=== PATIENT | male | born 1960 | race Hispanic/Latino ===

== ENCOUNTER → 2018-12-17 | Day surgery (SDC) | payer BC ==
[~2018-12-17] MED LIST: FENTANYL CITRATE/PF 100MCG/2 ML INJ ONE; INSULIN REGULAR, HUMAN 100 UNIT/1 ML 3ML VIAL ONE; LEVEMIR SC; METFORMIN HCL500 MG PO; MIDAZOLAM HCL 2 MG/2 ML VIAL ONE; OMEPRAZOLE40 MG PO; PROPOFOL IV EMULSION 10 MG/ML 50 ML VIAL ONE
--- OUTSIDE RECORDS SUMMARY | 2018-12-17 11:48 | XMS REPORT ---
Author [facility] Address Unknown Phone Unavailable Care Team Providers Care Mold Operator Name Role Phone Unavailable Unavailable Payers Payer Name Policy Type Policy Number Effective Date Expiration Date Problems This patient has no known problems. Allergies, Adverse Reactions, Alerts Allergy Name Allergy Type Status Severity Reaction(s) Onset Date Inactive Date Treating Clinician Comments No Known Allergies DA Active U 2017-05-30 00:00:00 Medications This patient has no known medications. Results Test Description Test Time Test Comments Text Results Atomic Results Result Comments GLUBED 2018-12-04 17:28:00 GLUBED (test code=GLUBED) 263 mg/dL 74-106 Performed by certified transfer table operator at [facility] - CT ABD PELVIS [id number] 16:12:00 Name: MIRIAM ARORA [facility] : 1960 Age/S: 58 / M [address] [facility] Unit #: [id number] Loc: [place]USH[place] [address] Phys: Alcon Barrios DO Acct: [id number] Dis Date: Status: REG ER PHONE #: [phone] Exam Date: 12/04/2018 1605 FAX #: [phone] Reason: upper abd pain EXAMS: CPT CODE: [id number] CT ABD PELVIS W/CONT [id number] REASON FOR EXAM: upper abd pain EXAM ORDER DATE: 12/04/2018 2:22 PM Ordering Vladimir: Alcon Barrios DO PROCEDURE: - CT ABD PELVIS W/CONT COMPARISON: FINDINGS: CT images of the abdomen and pelvis were obtained with IV and without oral contrast at 5mm. Dose modulation, iterative reconstruction, and/or weight based adjustment of the MA/KV was utilized to reduce the radiation dose to as low as reasonably achievable. Intravenous contrast: 100cc of Omnipaque 370. The liver, spleen, pancreas are grossly within normal limits. The patient is status post cholecystectomy. The kidneys are within normal limits. The urinary bladder is unremarkable. The colon, small bowel, and stomach are within normal limits without evidence of obstruction. The appendix is unremarkable. No evidence of free air or free fluid. IMPRESSION: No acute findings in the abdomen at 1612 Reported and signed by: Ernesto Wells M.D. CC: Alcon Barrios DO Technologist:Blessing Natarajan RT(R); SHERIE Bhagat CTDI: DLP: Trnscb Date/Time: 12/04/2018 (161) [id number] Orig Print D/T: S: 12/04/2018 (3535) CTDI: DLP: PAGE 1 Signed Report HEPATIC FUNCTION [id number] 15:50:00* Test Item Value Reference Range Comments TOTAL PROTEIN (test code=PROT) 7.9 gram/dL 6.4-8.2 ALBUMIN (test code=ALB) 4.6 g/dL 3.4-5.0 GLOBULIN (test code=GLOB) 3.3 gram/dL 2.7-4.2 ALBUMIN/GLOBULIN RATIO (test code=A/G) 1.4 0.75-1.50 BILIRUBIN TOTAL (test code=BILT) 0.50 mg/dL 0.0-1.0 BILIRUBIN DIRECT (test code=BILD) 0.15 mg/dL 0.0-0.20 SGOT/AST (test code=AST) 8 IUnit/L 15-37 SGPT/ALT (test code=ALT) 30 IUnit/L 12-78 ALKALINE PHOSPHATASE TOTAL (test code=ALKP) 153 IUnit/L 45-117 Note change in reference range due to change in reagent. [id number] 15:50:00* Test Item Value Reference Range Comments LIPASE (test code=LIP) 162 U/L 73.0-393.0 [id number] 15:50:00* Test Item Value Reference Range Comments TROPONIN-I (test code=TROPI) <0.015 ng/mL 0-0.045 HEPATIC FUNCTION [id number] 15:43:00* Test Item Value Reference Range Comments TOTAL PROTEIN (test code=PROT) gram/dL 6.4-8.2 ALBUMIN (test code=ALB) 4.6 g/dL 3.4-5.0 GLOBULIN (test code=GLOB) gram/dL 2.7-4.2 ALBUMIN/GLOBULIN RATIO (test code=A/G) 0.75-1.50 BILIRUBIN TOTAL (test code=BILT) mg/dL 0.0-1.0 BILIRUBIN DIRECT (test code=BILD) mg/dL 0.0-0.20 SGOT/AST (test code=AST) IUnit/L 15-37 SGPT/ALT (test code=ALT) IUnit/L 12-78 ALKALINE PHOSPHATASE TOTAL (test code=ALKP) IUnit/L 45-117 [id number] 15:43:00* Test Item Value Reference Range Comments LIPASE (test code=LIP) U/L 73.0-393.0 [id number] 15:43:00* Test Item Value Reference Range Comments TROPONIN-I (test code=TROPI) ng/mL 0-0.045 BASIC METABOLIC [id number] 15:42:00* Test Item Value Reference Range Comments SODIUM (test code=NA) 132 mmol/L 136-145 POTASSIUM (test code=K) 4.3 mmol/L 3.5-5.1 CHLORIDE (test code=CL) 95.0 mmol/L 98-107 CARBON DIOXIDE (test code=CO2) 28.0 mmol/L 21-32 ANION GAP (test code=GAP) 13.3 10-20 GLUCOSE (test code=GLU) 407 mg/dL 74-106 BLOOD UREA NITROGEN (test code=BUN) 18 mg/dL 7-18 GLOMERULAR FILTRATION RATE (test code=GFR) > 60 mL/min >=60 Estimated GFR by using Modified MDRD formula.Chronic kidney disease is defined as either kidney damageor GFR <60 mL/min/1.73 m2 for >3 months. CREATININE (test code=CREAT) 0.90 mg/dL 0.7-1.3 BUN/CREATININE RATIO (test code=BUN/CREA) 20.0 10-20 CALCIUM (test code=CA) 10.2 mg/dL 8.5-10.1 URINALYSIS [id number] 15:38:00* Test Item Value Reference Range Comments UA COLOR (test code=COLU) COLORLESS YELLOW UA APPEARANCE (test code=APPU) CLEAR CLEAR UA GLUCOSE DIPSTICK (test code=DGLUU) >1000 (4+) mg/dL NEGATIVE UA BILIRUBIN DIPSTICK (test code=BILU) NEGATIVE mg/dL NEGATIVE UA KETONE DIPSTICK (test code=KETU) 10 (1+) mg/dL NEGATIVE UA SPECIFIC GRAVITY (test code=SGU) 1.040 1.001-1.035 UA BLOOD DIPSTICK (test code=MERARI) Negative mg/dL NEGATIVE UA PH DIPSTICK (test code=GORDO) 6.5 5.0-8.0 UA PROTEIN DIPSTICK (test code=PROU) NEGATIVE mg/dL NEGATIVE UA UROBILINIOGEN DIPSTICK (test code=URO) Normal mg/dL NEGATIVE UA NITRITE DIPSTICK (test code=KAREN) NEGATIVE NEGATIVE UA LEUKOCYTE ESTERASE W REFLEX (test code=LEUUR) NEGATIVE Omer/uL NEGATIVE UA WBC (test code=WBCU) 0-5 per HPF 0-5 UA RBC (test code=RBCU) 0-2 #/HPF 0-5 UA EPITHELIAL CELLS (test code=EPIU) None seen per HPF FEW UA BACTERIA (test code=BACU) FEW #/HPF NONE UA MUCUS (test code=MUCU) FEW #/LPF FEW Urine Source? Clean CatchBASIC METABOLIC [id number] 15:32:00* Test Item Value Reference Range Comments SODIUM (test code=NA) 132 mmol/L 136-145 POTASSIUM (test code=K) 4.3 mmol/L 3.5-5.1 CHLORIDE (test code=CL) 95.0 mmol/L 98-107 CARBON DIOXIDE (test code=CO2) mmol/L 21-32 ANION GAP (test code=GAP) 10-20 GLUCOSE (test code=GLU) mg/dL 74-106 BLOOD UREA NITROGEN (test code=BUN) mg/dL 7-18 GLOMERULAR FILTRATION RATE (test code=GFR) mL/min >=60 CREATININE (test code=CREAT) mg/dL 0.7-1.3 BUN/CREATININE RATIO (test code=BUN/CREA) 10-20 CALCIUM (test code=CA) mg/dL 8.5-10.1 CBC W/O [id number] 15:14:00* Test Item Value Reference Range Comments WHITE BLOOD CELL (test code=WBC) 12.1 K/mm3 4.5-12.5 RED BLOOD CELL (test code=RBC) 5.22 mill/mm3 4.0-5.8 HEMOGLOBIN (test code=HGB) 15.5 gram/dL 13.0-17.5 HEMATOCRIT (test code=HCT) 45.2 % 42.0-52.0 MEAN CELL VOLUME (test code=MCV) 86.6 fL 80-98 MEAN CELL HGB (test code=MCH) 29.7 picogram 27.0-33.0 MEAN CELL HGB CONCETRATION (test code=MCHC) 34.3 gram/dL 33.0-36.0 RED CELL DISTRIBUTION WIDTH (test code=RDW) 12.1 % 11.6-16.2 PLATELET COUNT (test code=PLT) 279 K/mm3 150-450 MEAN PLATELET VOLUME (test code=MPV) 10.2 fL 6.7-11.0 CBC W/O [id number] 15:12:00* Test Item Value Reference Range Comments WHITE BLOOD CELL (test code=WBC) K/mm3 4.5-12.5 RED BLOOD CELL (test code=RBC) mill/mm3 4.0-5.8 HEMOGLOBIN (test code=HGB) 15.5 gram/dL 13.0-17.5 HEMATOCRIT (test code=HCT) 45.2 % 42.0-52.0 MEAN CELL VOLUME (test code=MCV) fL 80-98 MEAN CELL HGB (test code=MCH) picogram 27.0-33.0 MEAN CELL HGB CONCETRATION (test code=MCHC) gram/dL 33.0-36.0 RED CELL DISTRIBUTION WIDTH (test code=RDW) % 11.6-16.2 PLATELET COUNT (test code=PLT) K/mm3 150-450 MEAN PLATELET VOLUME (test code=MPV) fL 6.7-11.0 [id number] 13:43:00* Test Item Value Reference Range Comments GLUBED (test code=GLUBED) 424 mg/dL 74-106 Performed by certified transfer table operator at [facility]
[2018-12-17 14:10] VITALS: BP 105/78
--- NOTE | 2018-12-17 21:11 | Operative Report ---
DATE OF PROCEDURE: 12/17/2018 SURGEON: Joseph Morocho MD PROCEDURES PERFORMED: Esophagogastroduodenoscopy and colonoscopy. PREOPERATIVE DIAGNOSES: Abdominal pain, weight loss, nausea, and vomiting. POSTOPERATIVE DIAGNOSES: Hiatal hernia with reflux esophagitis, gastritis, and gastroparesis. Colon was totally within normal limits. PREOPERATIVE MEDICATIONS: Consisted of conscious sedation using MAC anesthesia. PROCEDURE IN DETAIL: PROCEDURE #1: Esophagogastroduodenoscopy: Using an Olympus [employer] video gastroscope, it was inserted into the patient's oropharynx, advanced to the hypopharynx, and down to the esophagus. The mucosa present throughout the esophagus was normal. There was evidence of mild reflux esophagitis in the very distal esophagus above a small sliding type hiatal hernia. The stomach was entered and insufflated with air. The mucosa present in the cardia, fundus, body, and antrum was viewed with evidence of gastritis, but no ulcerations or erosions were seen. The motility was grossly abnormal, suggestion maybe gastroparesis. Biopsies were obtained in the antrum and fundus looking for H. pylori infection. The pylorus was just visualized and entered. The duodenal bulb and postbulbar duodenum were found to be within normal limits. The endoscope was then withdrawn back up into the stomach, retroflexed again viewing the cardia, fundus and below. Again, hiatal hernia was seen. The scope was placed back into the body of the stomach and then slowly withdrawn back up into the esophagus, hypopharynx, oropharynx, and out of the patient's mouth and the procedure was ended. PROCEDURE #2: Colonoscopy: After normal digital rectal examination, an Olympus PABLO video colonoscope was inserted into the patient's rectum and advanced without difficulty to the level of cecum. The ileocecal valve was viewed and photographed. The colonoscope was withdrawn from the area of the cecum back down to the rectum. No polypoid lesions, tumors, masses, or inflammatory changes were encountered. We withdrew the colonoscope from the patient's rectum and procedure was ended. In completion, there were findings of hiatal hernia, reflux esophagitis, gastritis, gastroparesis, and normal colon examination. Joseph Morocho MD SAF/MODL /[id number]
== END | disposition home or self-care (01) ==
LOC: OR 11:47
PROVIDERS: ATTEND Internal Medicine Gastroenterology
DX: K29.00 Acute gastritis without bleeding (principal); K31.84 Gastroparesis; K21.0 Gastro-esophageal reflux disease with esophagitis; K44.9 Diaphragmatic hernia without obstruction or gangrene; E11.9 Type 2 diabetes mellitus without complications; Z01.810 Encounter for preprocedural cardiovascular examination; Z79.4 Long term (current) use of insulin; Z80.0 Family history of malignant neoplasm of digestive organs
CPT/HCPCS: 36415; 43239; 45378; 82948; 93005; J2250; J2704

== ENCOUNTER 2020-06-30 18:32 | Emergency (ER) | payer BC ==
[~2020-06-30 18:32] MED LIST changes: -FENTANYL CITRATE/PF 100MCG/2 ML INJ ONE; -INSULIN REGULAR, HUMAN 100 UNIT/1 ML 3ML VIAL ONE; -MIDAZOLAM HCL 2 MG/2 ML VIAL ONE; -PROPOFOL IV EMULSION 10 MG/ML 50 ML VIAL ONE
[2020-06-30] MEDS ORDERED: ACETAMINOPHEN 325 MG TAB PO ONE (19:00)
--- NOTE | 2020-06-30 20:05 | Diagnostic Imaging Report ---
EXAMINATION: CHEST SINGLE (PORTABLE) INDICATION: ^Y ^COVID + ^[id number] ^1929 COMPARISON: None FINDINGS: AP view TUBES and LINES: None. LUNGS: Lungs are well inflated. Bilateral mid to lower lung field airspace opacities. PLEURA: No pleural effusion or pneumothorax. HEART AND MEDIASTINUM: The cardiomediastinal silhouette is unremarkable. BONES AND SOFT TISSUES: No acute osseous lesion. Soft tissues are unremarkable. UPPER ABDOMEN: No free air under the diaphragm. IMPRESSION: Bilateral mid to lower lung field airspace opacities, representing multifocal pneumonia. Signed by: Dr. Kurt Christina MD on 06/30/2020 8:02 PM
--- OUTSIDE RECORDS SUMMARY | 2020-06-30 20:12 | XMS REPORT | Continuity of Care Document ---
Author Author [facility] t Organization [facility] Address [address] [place] [address] Phone Unavailable Care Team Providers Care Director Enterprise Sales Name Role Phone Tracey Mayer Attcindikalia Unavailable Payers Payer Name Policy Type Policy Number Effective Date Expiration Date S ource Problems This patient has no known problems. Allergies, Adverse Reactions, Alerts Allergy Name Allergy Type Status Severity Reaction(s) Onset Date Inacti ve Date Treating Clinician Comments Source No Known Allergies DA Active U 2017-05-30 00:00:00 [facility] Medications This patient has no known medications. Procedures This patient has no known procedures. Results Test Description Test Time Test Comments Results Result Comments Source CHEST SINGLE (PORTABLE) 2020-06-30 20:01:00 [facility] 1960 Sex: M [facility] [address] [place] [address] Patient Name: MIRIAM ARORA MR #: [id number] : 1960 Age/Sex: 59/M Req #: [id number] Adm Physician: Ordered by: OCTAVIA HERRMANN MD Report #: [id number] Location: ER Room/Bed: Procedure: [id number] DX/CHEST SINGLE (PORTABLE) Exam Date: 06/30/20 Exam Time: 1929 REPORT STATUS: Signed EXAMINATION: CHEST SINGLE (PORTABLE) INDICATION: Y COVID + [id number] COMPARISON: None FINDINGS: AP view TUBES and LINES: None. LUNGS: Lungs are well inflated. Bilateral mid to lower lung field airspace opacities. PLEURA: No pleural effusion or pneumothorax. HEART AND MEDIASTINUM: The cardiomediastinal silhouette is unremarkable. BONES AND SOFT TISSUES: No acute osseous lesion. Soft tissues are unremarkable. UPPER ABDOMEN: No free air under the diaphragm. IMPRESSION: Bilateral mid to lower lung field airspace opacities, representing multifocal pneumonia. Signed by: Dr. Kurt Magaña MD on 06/30/2020 8:02 PM Dictated By: KURT MAGAÑA MD 01 Transcribed By: BLAIR on 06/30/202001 COPY TO: OCTAVIA HERRMANN MD GLUBED 2018-12-04 17:28:00 Test Item GLUBED (test code = GLUBED) 263 mg/dL 74-106 H Performed by certified silverware buffing machine operator at [facility] - CT ABD PELVIS [id number] 16:12:00 Name: MIRIAM ARORA [facility] : 1960 Age/S: 58 / M [address] Unit #: [id number] Loc: SUSH[place] [address] Phys: Alcon Barrios DO Acct: [id number] Dis Date: Status: REG ER PHONE #: [phone] Exam Date: 12/04/2018 1605 FAX #: [phone] Reason: upper abd pain EXAMS: CPT CODE: [id number] CT ABD PELVIS W/CONT [id number] REASON FOR EXAM: upper abd pain EXAM [...] Wells M.D. CC: Alcon Barrios DO Technologist:Blessing JACK(R); SHERIE Bhagat CTDI: DLP: Trnscb Date/Time: 12/04/2018 (1612) Matilda Orig Print D/T: S: 12/04/2018 (1615) CTDI: DLP: PAGE 1 Signed Report HEPATIC FUNCTION [id number] 15:50:00* Test Item Value Reference Range Interpretation Comments TOTAL PROTEIN (test code = PROT) 7.9 gram/dL 6.4-8.2 N ALBUMIN (test code = ALB) 4.6 g/dL 3.4-5.0 N GLOBULIN (test code = GLOB) 3.3 gram/dL 2.7-4.2 N ALBUMIN/GLOBULIN RATIO (test code = A/G) 1.4 0.75-1.50 N BILIRUBIN TOTAL (test code = BILT) 0.50 mg/dL 0.0-1.0 N BILIRUBIN DIRECT (test code = BILD) 0.15 mg/dL 0.0-0.20 N SGOT/AST (test code = AST) 8 IUnit/L 15-37 L SGPT/ALT (test code = ALT) 30 IUnit/L 12-78 N ALKALINE PHOSPHATASE TOTAL (test code = ALKP) 153 IUnit/L 45-117 H Note change in reference range due to change in reagent. [id number] 15:50:00* Test Item Value Reference Range Interpretation Comments LIPASE (test code = LIP) 162 U/L 73.0-393.0 N [id number] 15:50:00* Test Item Value Reference Range Interpretation Comments TROPONIN-I (test code = TROPI) <0.015 ng/mL 0-0.045 N HEPATIC FUNCTION [id number] 15:43:00* Test Item Value Reference Range Interpretation Comments TOTAL PROTEIN (test code = PROT) gram/dL 6.4-8.2 ALBUMIN (test code = ALB) 4.6 g/dL 3.4-5.0 N GLOBULIN (test code = GLOB) gram/dL 2.7-4.2 ALBUMIN/GLOBULIN RATIO (test code = A/G) 0.75-1.50 BILIRUBIN TOTAL (test code = BILT) mg/dL 0.0-1.0 BILIRUBIN DIRECT (test code = BILD) mg/dL 0.0-0.20 SGOT/AST (test code = AST) IUnit/L 15-37 SGPT/ALT (test code = ALT) IUnit/L 12-78 ALKALINE PHOSPHATASE TOTAL (test code = ALKP) IUnit/L 45-117 [id number] 15:43:00* Test Item Value Reference Range Interpretation Comments LIPASE (test code = LIP) U/L 73.0-393.0 [id number] 15:43:00* Test Item Value Reference Range Interpretation Comments TROPONIN-I (test code = TROPI) ng/mL 0-0.045 BASIC METABOLIC [id number] 15:42:00* Test Item Value Reference Range Interpretation Comments SODIUM (test code = NA) 132 mmol/L 136-145 L POTASSIUM (test code = K) 4.3 mmol/L 3.5-5.1 N CHLORIDE (test code = CL) 95.0 mmol/L 98-107 L CARBON DIOXIDE (test code = CO2) 28.0 mmol/L 21-32 N ANION GAP (test code = GAP) 13.3 10-20 N GLUCOSE (test code = GLU) 407 mg/dL 74-106 H BLOOD UREA NITROGEN (test code = BUN) 18 mg/dL 7-18 N GLOMERULAR FILTRATION RATE (test code = GFR) > 60 mL/min >=60 Estimated GFR by using Modified MDRD formula.Chronic kidney disease is defined as either kidney damageor GFR <60 mL/min/1.73 m2 for >3 months. CREATININE (test code = CREAT) 0.90 mg/dL 0.7-1.3 N BUN/CREATININE RATIO (test code = BUN/CREA) 20.0 10-20 N CALCIUM (test code = CA) 10.2 mg/dL 8.5-10.1 H URINALYSIS [id number] 15:38:00* Test Item Value Reference Range Interpretation Comments UA COLOR (test code = COLU) COLORLESS YELLOW A UA APPEARANCE (test code = APPU) CLEAR CLEAR UA GLUCOSE DIPSTICK (test code = DGLUU) >1000 (4+) mg/dL NEGATIVE UA BILIRUBIN DIPSTICK (test code = BILU) NEGATIVE mg/dL NEGATIVE UA KETONE DIPSTICK (test code = KETU) 10 (1+) mg/dL NEGATIVE A UA SPECIFIC GRAVITY (test code = SGU) 1.040 1.001-1.035 UA BLOOD DIPSTICK (test code = MERARI) Negative mg/dL NEGATIVE UA PH DIPSTICK (test code = GORDO) 6.5 5.0-8.0 UA PROTEIN DIPSTICK (test code = PROU) NEGATIVE mg/dL NEGATIVE UA UROBILINIOGEN DIPSTICK (test code = URO) Normal mg/dL NEGATIVE UA NITRITE DIPSTICK (test code = KAREN) NEGATIVE NEGATIVE UA LEUKOCYTE ESTERASE W REFLEX (test code = LEUUR) NEGATIVE Omer/uL NEGATIVE UA WBC (test code = WBCU) 0-5 per HPF 0-5 UA RBC (test code = RBCU) 0-2 #/HPF 0-5 UA EPITHELIAL CELLS (test code = EPIU) None seen per HPF FEW UA BACTERIA (test code = BACU) FEW #/HPF NONE A UA MUCUS (test code = MUCU) FEW #/LPF FEW Urine Source? Clean CatchBASIC METABOLIC [id number] 15:32:00* Test Item Value Reference Range Interpretation Comments SODIUM (test code = NA) 132 mmol/L 136-145 L POTASSIUM (test code = K) 4.3 mmol/L 3.5-5.1 N CHLORIDE (test code = CL) 95.0 mmol/L 98-107 L CARBON DIOXIDE (test code = CO2) mmol/L 21-32 ANION GAP (test code = GAP) 10-20 GLUCOSE (test code = GLU) mg/dL 74-106 BLOOD UREA NITROGEN (test code = BUN) mg/dL 7-18 GLOMERULAR FILTRATION RATE (test code = GFR) mL/min >=60 CREATININE (test code = CREAT) mg/dL 0.7-1.3 BUN/CREATININE RATIO (test code = BUN/CREA) 10-20 CALCIUM (test code = CA) mg/dL 8.5-10.1 CBC W/O [id number] 15:14:00* Test Item Value Reference Range Interpretation Comments WHITE BLOOD CELL (test code = WBC) 12.1 K/mm3 4.5-12.5 N RED BLOOD CELL (test code = RBC) 5.22 mill/mm3 4.0-5.8 N HEMOGLOBIN (test code = HGB) 15.5 gram/dL 13.0-17.5 N HEMATOCRIT (test code = HCT) 45.2 % 42.0-52.0 N MEAN CELL VOLUME (test code = MCV) 86.6 fL 80-98 N MEAN CELL HGB (test code = MCH) 29.7 picogram 27.0-33.0 N MEAN CELL HGB CONCETRATION (test code = MCHC) 34.3 gram/dL 33.0-36. 0 N RED CELL DISTRIBUTION WIDTH (test code = RDW) 12.1 % 11.6-16. 2 N PLATELET COUNT (test code = PLT) 279 K/mm3 150-450 N MEAN PLATELET VOLUME (test code = MPV) 10.2 fL 6.7-11.0 N CBC W/O [id number] 15:12:00* Test Item Value Reference Range Interpretation Comments WHITE BLOOD CELL (test code = WBC) K/mm3 4.5-12.5 RED BLOOD CELL (test code = RBC) mill/mm3 4.0-5.8 HEMOGLOBIN (test code = HGB) 15.5 gram/dL 13.0-17.5 N HEMATOCRIT (test code = HCT) 45.2 % 42.0-52.0 N MEAN CELL VOLUME (test code = MCV) fL 80-98 MEAN CELL HGB (test code = MCH) picogram 27.0-33.0 MEAN CELL HGB CONCETRATION (test code = MCHC) gram/dL 33.0-36. 0 RED CELL DISTRIBUTION WIDTH (test code = RDW) % 11.6-16. 2 PLATELET COUNT (test code = PLT) K/mm3 150-450 MEAN PLATELET VOLUME (test code = MPV) fL 6.7-11.0 [id number] 13:43:00* Test Item Value Reference Range Interpretation Comments GLUBED (test code = GLUBED) 424 mg/dL 74-106 H Performed by certified silverware buffing machine operator at [facility]
--- NOTE | 2020-06-30 20:32 | Emergency Department Note ---
History of Present Illnes History of Present Illness Chief Complaint: COVID PUI History of Present Illness This is a 59 year old male 59 Y/O MALE PT AAOX3 PRESENTS TO THE ER COVID + X1 WEEK AGO; PT REPORTS COUGH AND LOSS OF TASTE; RESP ARE EVEN, UNLABORED, OXYGEN SATURATION 99% ON ROOM AIR . Historian: Patient Arrival Mode: Car Onset (how long ago): day(s) (7) Location: CHEST Quality: COUGH Radiation: Reports non-radiation Severity: moderate Onset quality: gradual Duration (how long): day(s) (7) Timing of current episode: constant Progression: worsening Chronicity: new Context: Reports recent illness (POSITIVE FOR COVID 19) Relieving factors: none Exacerbating factors: movement Associated symptoms: Reports cough, Reports shortness of breath Treatments prior to arrival: none Past Medical/Family History Physician Review I have reviewed the patient's past medical and family history. Any updates have been documented here. Past Medical History Recent Fever: Yes Clinical Suspicion of Infectio: Yes New/Unexplained Change in Ment: No Social History Smoking Cessation: Unknown if ever smoked Alcohol Use: None Any Illegal Drug Use: No Other Any Pre-Existing Lines (PICC,: No Review of Systems Review of Systems Constitutional: Reports no symptoms EENTM: Reports no symptoms Cardiovascular: Reports no symptoms Respiratory: Reports as per HPI Gastrointestinal: Reports no symptoms Genitourinary: Reports no symptoms Musculoskeletal: Reports no symptoms Integumentary: Reports no symptoms Neurological: Reports no symptoms Psychological: Reports no symptoms Endocrine: Reports no symptoms Hematological/Lymphatic: Reports no symptoms Physical Exam Related Data Allergies: Coded Allergies: No Known Allergies (Unverified , 12/16/18) Triage Vital Signs Vital Signs Date Time Temp Pulse Resp B/P (MAP) Pulse Ox O2 Delivery O2 Flow Rate FiO2 06/30/20 18:40 100.1 91 20 131/80 99 Room Air Vital signs reviewed: Yes Physical Exam CONSTITUTIONAL Constitutional: Present well-developed, Present well-nourished; Absent distressed HENT HENT: Present normocephalic, Present atraumatic, Present oropharynx clear/moist, Present nose normal HENT L/R: Present left ext ear normal, Present right ext ear normal EYES Eyes: Reports PERRL, Reports conjunctivae normal NECK Neck: Present ROM normal PULMONARY Pulmonary: Present effort normal, Present rhonchi (AT BASES BILATERAL) CARDIOVASCULAR Cardiovascular: Present regular rhythm, Present heart sounds normal, Present capillary refill normal, Present normal rate GASTROINTESTINAL Abdominal: Present soft, Present nontender, Present bowel sounds normal GENITOURINARY Genitourinary: Present exam deferred SKIN Skin: Present warm, Present dry MUSCULOSKELETAL Musculoskeletal: Present ROM normal NEUROLOGICAL Neurological: Present alert, Present oriented x 3, Present no gross motor or sensory deficits PSYCHOLOGICAL Psychological: Present mood/affect normal, Present judgement normal Results Imaging Imaging results reviewed: Yes Impressions Procedure: [id number] DX/CHEST SINGLE (PORTABLE) Exam Date: 06/30/20 Exam Time: 1929 REPORT STATUS: Signed EXAMINATION: CHEST SINGLE (PORTABLE) INDICATION: ^Y ^COVID + ^20200630 ^1929 COMPARISON: None FINDINGS: AP view TUBES and LINES: None. LUNGS: Lungs are well inflated. Bilateral mid to lower lung field airspace opacities. PLEURA: No pleural effusion or pneumothorax. HEART AND MEDIASTINUM: The cardiomediastinal silhouette is unremarkable. BONES AND SOFT TISSUES: No acute osseous lesion. Soft tissues are unremarkable. UPPER ABDOMEN: No free air under the diaphragm. IMPRESSION: Bilateral mid to lower lung field airspace opacities, representing multifocal pneumonia. Signed by: Dr. uKrt Christina MD on 06/30/2020 8:02 PM Dictated By: KURT CHRISTINA MD 01 Transcribed By: BLAIR on 06/30/202001 COPY TO: OCTAVIA HERRMANN MD~ Assessment & Plan Medical Decision Making MDM PT WITH COVID 19 WITH COUGH AND SOB CXR ORDERED TO EVAL FOR VIRAL PNEUMONIA I SPOKE WITH DR SPENCE D/C WITH ZPAK, ZINC AND VITAMIN C Assessment & Plan Final Impression: (1) Pneumonia due to COVID-19 virus Depart Disposition: HOME, SELF-CARE Last Vital Signs Date Time Temp Pulse Resp B/P (MAP) Pulse Ox O2 Delivery O2 Flow Rate FiO2 06/30/20 18:40 100.1 91 20 131/80 99 Room Air Home Meds Reported Medications Omeprazole (OMEPRAZOLE) 40 Mg Capsule., 1 CAP PO DAILY 12/17/18 [Levemir] No Conflict Check, 10 U SC PRN 12/16/18 Metformin Hcl (METFORMIN HCL) 500 Mg Tablet, 1000 MG PO DAILY, #60 TAB 12/16/18 Medications in the ED Acetaminophen 650 mg ONCE ONCE PO ; Start 06/30/20 at 19:00; Stop 06/30/20 at 19:01; Status DC OCTAVIA HERRMANN MD Jun 30, 2020 20:32
== END 2020-06-30 20:51 | disposition home or self-care (01) ==
LOC: ER 18:38
DX: U07.1 COVID-19 (principal); J12.89 Other viral pneumonia
CPT/HCPCS: 71045; 99283

== ENCOUNTER 2020-07-05 10:20 | Emergency (ER) | payer SELFPAY ==
[~2020-07-05] VITALS: Ht 157.5 cm; Wt 59.0 kg
--- OUTSIDE RECORDS SUMMARY | 2020-07-05 10:27 | XMS REPORT | Continuity of Care Document ---
Author Author [facility] Organization [facility] t Address [address] [place] [address] Phone Unavailable Care Team Providers Care Building Services Supervisor Name Role Phone DO JOLEEN DENNIS PCP Tracey Mayer Unavailable Payers Payer Name Policy Type Policy Number Effective Date Expiration Date [employer] [id number] 2019 00:00:00 [facility] Problems Condition Name Condition Details Condition Category Status Onset Date Resolution Date Last Treatment Date Treating Clinician Comments Source Pneumonia due to severe acute respiratory syndrome coronavir us 2 (SARS-CoV-2) Problem Active [facility] Allergies, Adverse Reactions, Alerts Allergy Name Allergy Type Status Severity Reaction(s) Onset Date Inacti ve Date Treating Clinician Comments Source No Known Allergies DA Active U 2017-05-30 00:00:00 [facility] Social History Social Habit Start Date Stop Date Quantity Comments Source Sex Assigned At 1960 00:00:00 1960 00:00:00 Male [facility] Medications Ordered Medication Name Filled Medication Name Start Date Stop Da te Current Medication? Ordering Clinician Indication Dosage Frequency Signature (SIG) Comments Components Source Levemir Levemir Yes 10 As Needed [facility] Metformin Hcl Metformin Hcl Yes 1000 Daily [facility] Omeprazole Omeprazole Yes 1 Daily [facility] I [facility] Vital Signs Vital Name Observation Time Observation Value Comments Source Oxygen saturation by Pulse oximetry 2020-06-30 20:38:00 100 /min [facility] Procedures This patient has no known procedures. Plan of Care Planned Activity Planned Date Details Comments Source Instructions COVID-19: 10/18/2019 [facility] Encounters Start Date/Time End Date/Time Encounter Type Admission Type [facility] Facility Care Department Encounter ID Source 2020-06-30 18:38:00 2020-06-30 20:51:00 Departed Emergency Room Kasi Mayer [facility] [id number] I [facility] Results Test Description Test Time Test Comments Results Result Comments Source CHEST SINGLE (PORTABLE) 2020-06-30 20:01:00 [facility] 1960 Sex: M [place] [address] Patient Name: MIRIAM ARORA MR #: [id number] : 1960 Age/Sex: 59/M Req #: [id number] Adm Physician: Ordered by: OCTAVIA HERRMANN MD Report #: [id number] Location: ER Room/Bed: Procedure: [id number] DX/CHEST SINGLE (PORTABLE) Exam Date: 06/30/20 Exam Time: 1929 REPORT STATUS: Signed EXAMINATION: CHEST SINGLE (PORTABLE) INDICATION: Y COVID + [id number] COMPARISON: None FINDINGS: AP view TUBES [...] representing multifocal pneumonia. Signed by: Dr. Kurt Christina MD on 06/30/2020 8:02 PM Dictated By: KURT CHRISTINA MD 01 Transcribed By: BLAIR on 06/30/202001 COPY TO: OCTAVIA HERRMANN MD GLUBED 2018-12-04 17:28:00 Test Item GLUBED (test code = GLUBED) 263 mg/dL 74-106 H Performed by certified cloth mercerizer operator at [facility] - CT ABD PELVIS [id number] 16:12:00 Name: MIRIAM ARORA [facility] : 1960 Age/S: 58 / M [address] [facility] Unit #: [id number] Loc: [place] [address] Phys: Alcon Barrios DO Acct: [id number] Dis Date: Status: REG ER PHONE #: [phone] Exam Date: 12/04/2018 1605 FAX #: [phone] Reason: upper abd pain EXAMS: CPT CODE: [id number] CT ABD PELVIS W/CONT 16371 REASON FOR EXAM: upper abd pain EXAM ORDER DATE: 12/04/2018 2:22 PM Ordering M.DAkash: Alcon Barrios DO PROCEDURE: - CT ABD [...] Bhagat CTDI: DLP: Trnscb Date/Time: 12/04/2018 (161) AlejandraVTL Orig Print D/T: S: 12/04/2018 (7089) CTDI: DLP: PAGE 1 Signed Report HEPATIC FUNCTION [id number] 15:50:00* Test Item Value Reference Range Interpretation [...] reference range due to change in reagent. [id number] 15:50:00* Test Item Value Reference Range Interpretation Comments LIPASE (test code = LIP) 162 U/L 73.0-393.0 N [id number] 15:50:00* Test Item Value Reference Range Interpretation Comments TROPONIN-I (test code = TROPI) <0.015 ng/mL 0-0.045 N HEPATIC FUNCTION [id number] 15:43:00* Test Item Value Reference Range Interpretation [...] TOTAL (test code = ALKP) IUnit/L 45-117 [id number] 15:43:00* Test Item Value Reference Range Interpretation Comments LIPASE (test code = LIP) U/L 73.0-393.0 [id number] 15:43:00* Test Item Value Reference Range Interpretation Comments TROPONIN-I (test code = TROPI) ng/mL 0-0.045 BASIC METABOLIC [id number] 15:42:00* Test Item Value Reference Range Interpretation [...] = CA) 10.2 mg/dL 8.5-10.1 H URINALYSIS [id number] 15:38:00* Test Item Value Reference Range Interpretation [...] #/LPF FEW Urine Source? Clean CatchBASIC METABOLIC [id number] 15:32:00* Test Item Value Reference Range Interpretation [...] code = CA) mg/dL 8.5-10.1 CBC W/O [id number] 15:14:00* Test Item Value Reference Range Interpretation [...] MPV) 10.2 fL 6.7-11.0 N CBC W/O [id number] 15:12:00* Test Item Value Reference Range Interpretation [...] VOLUME (test code = MPV) fL 6.7-11.0 [id number] 13:43:00* Test Item Value Reference Range Interpretation Comments GLUBED (test code = GLUBED) 424 mg/dL 74-106 H Performed by certified cloth mercerizer operator at [facility]
--- NOTE | 2020-07-05 10:39 | Emergency Department Note ---
History of Present Illnes History of Present Illness Chief Complaint: COVID PUI History of Present Illness This is a 59 year old male Chief Complaint Comment Patient in from home with complaints of worsening shortness of breath and cough that started this morning with a known covid 19 infection. Patient tested positive for Covid on 06/24/2020 and was seen here on 06/30/2020 and discharged home with prescriptions which the patient states he filled and took as directed. On presentation to the ER the patient was hypoxic at 84% on room air and tachypneic at 40. Patient was placed on 4L NC and has saturations between 95-99% and his respiratory rate dropped to 27-30. Patient denies all other covid symptoms besides the cough and shortness of breath. Denies chest pain. Historian: Patient Arrival Mode: [employer] Member Required: No Onset (how long ago): month(s) (1) Location: Lungs Quality: SoB Radiation: Reports non-radiation Severity: moderate Onset quality: gradual Duration (how long): month(s) (1) Timing of current episode: constant Progression: worsening Chronicity: new Context: Reports recent illness (COVID) Relieving factors: none Exacerbating factors: none Associated symptoms: Reports denies other symptoms Treatments prior to arrival: none Past Medical/Family History Physician Review I have reviewed the patient's past medical and family history. Any updates have been documented here. Past Medical History Recent Fever: No Clinical Suspicion of Infectio: Yes New/Unexplained Change in Ment: No Past Medical History: Diabetes, Hyperlipedemia Other Medical History: Covid-19 06/2020 Past Surgical History: None Review of Systems Review of Systems Constitutional: Reports no symptoms EENTM: Reports no symptoms Cardiovascular: Reports no symptoms Respiratory: Reports as per HPI, Reports cough, Reports dyspnea Gastrointestinal: Reports no symptoms Genitourinary: Reports no symptoms Musculoskeletal: Reports no symptoms Integumentary: Reports no symptoms Neurological: Reports no symptoms Psychological: Reports no symptoms Endocrine: Reports no symptoms Hematological/Lymphatic: Reports no symptoms Physical Exam Related Data Allergies: Coded Allergies: No Known Allergies (Unverified , 12/16/18) Triage Vital Signs Vital Signs Date Time Temp Pulse Resp B/P (MAP) Pulse Ox O2 Delivery O2 Flow Rate FiO2 07/05/20 10:28 98.4 59 40 118/72 84 Room Air Vital signs reviewed: Yes Physical Exam CONSTITUTIONAL Constitutional: Present well-developed, Present well-nourished HENT HENT: Present normocephalic, Present atraumatic, Present oropharynx clear/moist, Present nose normal HENT L/R: Present left ext ear normal, Present right ext ear normal EYES Eyes: Reports PERRL, Reports conjunctivae normal NECK Neck: Present ROM normal PULMONARY Pulmonary: Present effort normal, Present breath sounds normal CARDIOVASCULAR Cardiovascular: Present regular rhythm, Present heart sounds normal, Present capillary refill normal, Present normal rate GASTROINTESTINAL Abdominal: Present soft, Present nontender, Present bowel sounds normal GENITOURINARY Genitourinary: Present exam deferred SKIN Skin: Present warm, Present dry MUSCULOSKELETAL Musculoskeletal: Present ROM normal NEUROLOGICAL Neurological: Present alert, Present oriented x 3, Present no gross motor or s ensory deficits PSYCHOLOGICAL Psychological: Present mood/affect normal, Present judgement normal Results Laboratory Lab results reviewed: Yes Imaging Imaging results reviewed: Yes Diagnostics Tests Diagnostic test(s) reviewed: Yes Procedures 12 Lead ECG Interpretation ECG Interpretation : [employer] Member: Interpreted by ED physician Date: Jul 05, 2020 Rhythm: sinus bradycardia Rate: normal QRS axis: normal ST segments normal: Yes T waves normal: Yes Clinical Impression: normal ECG Assessment & Plan Medical Decision Making MDM 59 y.o M COVID + presents for decreased O2 sats at home. Dr. Can patient. Exam shows O2 sat 84% which improved to 99% on 4L NC. Fluids given. CT neg. Dr. can consulted in the ED. He recommends DC wit home O2 and f/u in clinic. Will Rx Levaquin as well for potential PNA given WBC but imaging neg. Reassessment Reassessment time: 15:00 Reassessment No acute distress. breathing improved Assessment & Plan Final Impression: (1) COVID-19 Depart Disposition: HOME, SELF-CARE Last Vital Signs Date Time Temp Pulse Resp B/P (MAP) Pulse Ox O2 Delivery O2 Flow Rate FiO2 07/05/20 10:28 98.4 59 40 118/72 84 Room Air Home Meds Reported Medications Omeprazole (OMEPRAZOLE) 40 Mg Capsule., 1 CAP PO DAILY 12/17/18 [Levemir] No Conflict Check, 10 U SC PRN 12/16/18 Metformin Hcl (METFORMIN HCL) 500 Mg Tablet, 1000 MG PO DAILY, #60 TAB 12/16/18 Medications in the ED Lactated Ringer's 1,000 ml @ 0 mls/hr Q0M ONCE INJ ; Start 07/05/20 at 10:45; Stop 07/05/20 at 10:46 YASSINE CARRERA MD Jul 05, 2020 10:39
[2020-07-05] MEDS ORDERED: LACTATED RINGER'S 1,000 ML INJ ONE (10:45)
[2020-07-05 10:51] LABS: BASOPHILS # (AUTO) 0.1 (0.0-0.1); BASOPHILS % 0.2 % (0.0-1.0); HEMATOCRIT 42.3 % (38.2-49.6); HEMOGLOBIN 15.2 g/dL (14.0-18.0); LYMPHOCYTES % 4.6 % (18.0-39.1); MEAN CORPUSCULAR HGB CONC 35.9 g/dL (31-35); MEAN CORPUSCULAR VOLUME 83.6 fL (81-99); MONOCYTES % 4.9 % (4.4-11.3); NEUTROPHILS # (AUTO) 18.4 (2.1-6.9); NEUTROPHILS % 89.7 % (38.7-80.0); PLATELET COUNT 290 x10e3/uL (140-360); RED BLOOD COUNT 5.06 x10e6/uL (4.3-5.7)
--- NOTE | 2020-07-05 11:30 | Diagnostic Imaging Report ---
EXAMINATION: CHEST SINGLE (PORTABLE) INDICATION: Chest pain COMPARISON: Chest radiograph 06/30/2020 FINDINGS: LINES/TUBES:EKG leads overlie the chest. LUNGS:The lungs are well-inflated. No focal consolidation or pulmonary edema. PLEURA:No pleural effusion or pneumothorax. MEDIASTINUM:The cardiomediastinal silhouette appears normal in size and shape. BONES/SOFT TISSUES:No acute osseous injury. ABDOMEN:No free air under the diaphragm. Status post cholecystectomy. IMPRESSION: No focal pneumonia or pulmonary edema. Signed by: Silvia Degroot MD on 07/05/2020 11:26 AM
--- NOTE | 2020-07-05 11:51 | Consultation ---
DATE OF CONSULTATION: Pulmonary Critical Care Consultation CHIEF COMPLAINT: Dyspnea, fatigue, and elevated blood sugar. HISTORY OF PRESENT ILLNESS: The patient is a 59-year-old man. He has a history of diabetes and takes 30 of Levemir in the morning as well as 8 of short-acting insulin before each meal. He tested positive for COVID about 10 days ago. Initially, he had a cough. He went to the ER and had good saturations in normal test. He was subsequently sent home. Several days later, he had worsening cough and some mild dyspnea. He received dexamethasone as an outpatient as well as guaifenesin with codeine. He also has been taking azithromycin as well as vitamin C and zinc. Over the last 2 days, he noticed increasing fatigue. He has had nausea and vomiting as well as worsening cough. Apparently, he had difficulty standing in the shower this morning. His oxygenation on room air was 85% at home. PAST MEDICAL HISTORY: 1. Diabetes as noted above. 2. No prior cardiac disease. 3. No prior respiratory problems. PAST SURGICAL HISTORY: The patient denies any prior surgeries. SOCIAL HISTORY: The patient has never been a smoker. He is not a drinker. FAMILY HISTORY: Family history is noncontributory. REVIEW OF SYSTEMS: Some fevers several days ago. He has not had fevers in the last 2 or 3 days. No headache. He does not complain of chest pain. He has dyspnea and cough. He is having some nausea and vomiting. He has no leg edema. PHYSICAL EXAMINATION: VITAL SIGNS: Stable. HEENT: Shows no facial swelling or erythema. LYMPHATIC: Shows no submandibular, cervical, or supraclavicular adenopathy. CARDIAC: Reveals regular rate and rhythm with normal S1, S2. LUNGS: Auscultation of lungs reveals crackles at the bases. There is no wheezing. ABDOMEN: Soft, nontender. There is no rebound or guarding. EXTREMITIES: Shows no leg edema or calf tenderness. There is no cyanosis or clubbing. SKIN: Shows no rashes. NEUROLOGICAL: Shows no focal abnormalities. IMPRESSION: 1. COVID-19 and viral pneumonia. 2. Diabetes out of control. 3. Dehydration. PLAN: 1. The patient has been started on oxygen. 2. Obtain a comprehensive metabolic panel, CBC, and hemoglobin A1c. 3. PA and lateral chest x-ray. 4. Intravenous fluids. 5. Monitoring and control blood sugars. 6. Consider remdesivir. MD INGRID Aquino/WILFREDO /[id number]
[2020-07-05] MEDS ORDERED: PIPERACILLIN/TAZO 4.5 GM 100 ML IV STA (12:25)
[2020-07-05 13:55] LABS: ALANINE AMINOTRANSFERASE 49 IU/L (0-55); ALBUMIN 3.3 g/dL (3.5-5.0); ALBUMIN/GLOBULIN RATIO 0.8 (0.8-2.0); ANION GAP 17.4 mmol/L (8-16); BLOOD UREA NITROGEN 36 mg/dL (7-26); BUN/CREATININE RATIO 40 (6-25); CALCIUM 8.5 mg/dL (8.4-10.2); CARBON DIOXIDE 25 mmol/L (22-29); CHLORIDE 96 mmol/L (98-107); EST GLOMERULAR FILTRATION RATE > 60 ML/MIN (60-); GLUCOSE 320 mg/dL (74-118); POTASSIUM 4.4 mmol/L (3.5-5.1); SODIUM 134 mmol/L (136-145)
[2020-07-05] MEDS ORDERED: IOPAMIDOL 370 MG/ML 200 ML INFUS..BTL INJ ONE (13:59)
[2020-07-05] MEDS ORDERED: SODIUM CHLORIDE 0.9% 50ML 50 ML ONE (13:59)
[2020-07-05 14:04] LABS: BILIRUBIN,URINE NEGATIVE (NEGATIVE); COLOR,URINE YELLOW (YELLOW); KETONES,URINE 2+ (NEGATIVE); LEUKOCYTE ESTERASE ,URINE NEGATIVE (NEGATIVE); NITRITE,URINE NEGATIVE (NEGATIVE); PROTEIN,URINE DIPSTICK 1+ (NEGATIVE); URINE UROBILINOGEN 1 mg/dL (0.2 - 1)
[2020-07-05 14:05] LABS: CLARITY,URINE CLEAR (CLEAR)
[2020-07-05 14:09] LABS: ALKALINE PHOSPHATASE 97 IU/L (40-150)
[2020-07-05 14:10] LABS: BACTERIA,URINE FEW /HPF; EPITHELIAL CELLS,URINE FEW /LPF; RBC,URINE 0-5 /HPF (0-5); WBC,URINE (MAN) 0-5 /HPF (0-5)
[2020-07-05 14:11] LABS: MUCUS,URINE FEW (RARE)
--- NOTE | 2020-07-05 14:32 | Diagnostic Imaging Report ---
EXAM: CT Chest WITH contrast- Pulmonary Embolism Protocol INDICATION: Viral pneumonia, shortness of breath COMPARISON: Chest are graft 07/05/2020 TECHNIQUE: Chest was scanned utilizing a multidetector helical scanner from the lung apex through the level of the diaphragm after administration of IV contrast. Thin section reconstructions were obtained with special concentration on the pulmonary arteries. Coronal and sagittal reformations were obtained. Pulmonary embolism protocol was performed. IV CONTRAST: 100 cc of Isovue 370 RADIATION DOSE: Total DLP: 360 mGy*cm Dose modulation, iterative reconstruction, and/or weight based adjustment of the mA/kV was utilized to reduce the radiation dose to as low as reasonably achievable. COMPLICATIONS: None FINDINGS: LINES/ TUBES: None. PULMONARY ARTERIES: No filling defect is identified within the pulmonary arteries to the segmental level. The subsegmental pulmonary arteries are not well opacified. Main pulmonary artery measures 2.5 cm in diameter. No right heart strain. LUNGS AND AIRWAYS: Bilateral multifocal predominantly peripheral and lower lobe groundglass and consolidative opacities. PLEURA: The pleural spaces are clear. HEART AND MEDIASTINUM: The thyroid gland is normal. No mediastinal, hilar or axillary lymphadenopathy. The heart is normal in size.. There is no pericardial effusion. UPPER ABDOMEN: No acute findings in the upper abdomen. BONES: No acute osseous injury. No suspicious lytic or blastic lesions. SOFT TISSUES: Unremarkable. IMPRESSION: No pulmonary embolism. Bilateral multifocal groundglass and consolidative opacities consistent with known clinical history of viral pneumonia. Signed by: Silvia Degroot MD on 07/05/2020 2:29 PM
--- NOTE | 2020-07-05 14:56 | NUR ---
Received order to set up home oxygen. Home O2 eval was done and pt dropped to 86% on exertion on RA, O2 increased to 94% on 2L. CM called pt and gave him self pay prices for oxygen. Pt agreed to use [employer]. Choice letter placed with pt's chart in ER. Referral sent to [facility] at [phone] / . Justin with [facility] was notified of referral and will contact pt's for credit card information. Will let CM know once pt approved to deliver portable tank.
--- NOTE | 2020-07-05 15:29 | NUR ---
Spoke with Justin with [employer], states ok to deliver portable tank. DENNISE delivered portable tank to [facility]. Also gave him printed instructions to give to pt to call [facility] on discharge for delivery of concentrator. DENNISE also called pt and asked him to call [facility] when he gets discharged.
== END 2020-07-05 15:53 | disposition home or self-care (01) ==
LOC: ER 10:26
DX: U07.1 COVID-19 (principal); R05 Cough; R06.02 Shortness of breath; E11.9 Type 2 diabetes mellitus without complications; E78.5 Hyperlipidemia, unspecified
CPT/HCPCS: 36415; 71045; 71260; 80053; 81001; 82948; 84484; 85025; 93005; 99284; J2543; J7121; Q9967

== ENCOUNTER 2023-01-24 09:49 | Emergency (ER) | payer BC, OTHER ==
[~2023-01-24] VITALS: Ht 157.5 cm; Wt 59.0 kg
[2023-01-24 09:50] VITALS: O2SAT 100
[2023-01-24] MEDS ORDERED: LIDOCAINE 1% 10 ML MULTIDOSE VIAL IJ ONE (10:25)
[2023-01-24] MEDS ORDERED: TETANUS/DIPHTHERIA TOX ADULT 0.5 ML SYR IM ONE (10:45)
[2023-01-24 12:46] LABS: BASOPHILS % 0.2 % (0.0-1.0); EOSINOPHILS # (AUTO) 0.1 (0.0-0.4); EOSINOPHILS % 0.8 % (0.0-6.0); HEMOGLOBIN 16.1 g/dL (14.0-18.0); LYMPHOCYTES % 16.4 % (18.0-39.1); MEAN CORPUSCULAR HEMOGLOBIN 30.4 pg (28-32); MEAN CORPUSCULAR VOLUME 86.8 fL (81-99); MONOCYTES # (AUTO) 0.7 (0.2-0.8); MONOCYTES % 5.8 % (4.4-11.3); NEUTROPHILS # (AUTO) 9.1 (2.1-6.9); NEUTROPHILS % 76.5 % (38.7-80.0); PLATELET COUNT 221 x10e3/uL (140-360); RED CELL DISTRIBUTION WIDTH 12.5 % (11.7-14.4)
[2023-01-24 12:55] LABS: INR 0.92; PROTHROMBIN TIME 12.9 seconds (11.9-14.5)
[2023-01-24 13:02] LABS: ALBUMIN 4.4 g/dL (3.5-5.0); ALBUMIN/GLOBULIN RATIO 1.3 (0.8-2.0); ANION GAP 17.6 mmol/L (8-16); CALCIUM 9.9 mg/dL (8.4-10.2); CREATININE, SERUM 0.86 mg/dL (0.72-1.25); POTASSIUM 4.6 mmol/L (3.5-5.1)
== END 2023-01-24 14:24 | disposition other institution (70) ==
LOC: ER 10:05
DX: S01.511A Laceration without foreign body of lip, initial encounter (principal); I60.8 Other nontraumatic subarachnoid hemorrhage; W01.198A Fall on same level from slipping, tripping and stumbling with subsequent striking against other object, initial encounter; Y93.01 Activity, walking, marching and hiking; Y92.89 Other specified places as the place of occurrence of the external cause
CPT/HCPCS: 36415; 70450; 70486; 80053; 85025; 85610; 90471; 90714; 99284